=== PATIENT | female | born 1980 | race Two or more races ===

== ENCOUNTER 2022-08-20 13:35 | Emergency (ER) | payer MEDICAID, OTHER ==
[~2022-08-20] VITALS: Ht 172.7 cm; Wt 86.3 kg
[2022-08-20] MEDS ORDERED: HYDROcodone-ACET 5/325MG TAB PO ONE (14:30)
[2022-08-20] MEDS ORDERED: METH750T22 PO (15:05)
[2022-08-20] MEDS ORDERED: IBUP800T27 PO (15:05)
[2022-08-20 15:27] VITALS: BP 138/79
== END 2022-08-20 15:28 | disposition home or self-care (01) ==
LOC: ER 13:35
DX: S39.012A Strain of muscle, fascia and tendon of lower back, initial encounter (principal); M54.41 Lumbago with sciatica, right side; Z88.6 Allergy status to analgesic agent; W01.0XXA Fall on same level from slipping, tripping and stumbling without subsequent striking against object, initial encounter; Y93.89 Activity, other specified; Y92.89 Other specified places as the place of occurrence of the external cause; Y99.8 Other external cause status
CPT/HCPCS: 72100; 72220